=== PATIENT | female | born 1990 | race Caucasian/White ===

== ENCOUNTER 2024-10-24 12:41 | Emergency (ER) | payer MEDICAID ==
[~2024-10-24] VITALS: Ht 162.6 cm; Wt 80.0 kg
[2024-10-24 12:47] VITALS: BP 116/91; PULSE 83; RESP 18; TEMP 98.1; O2SAT 100
[2024-10-24] MEDS: KETOROLAC TROMETHAMINE 30 MG/ML VIAL IM ONE (14:20)
[2024-10-24] MEDS: LIDOCAINE 5% TRANSDERMAL PATCH TD ONE (14:20)
[2024-10-24] MEDS ORDERED: METH-812 PO (15:15)
[2024-10-24] MEDS ORDERED: IBUP-1492 PO (15:15)
== END 2024-10-24 15:41 | disposition home or self-care (01) ==
LOC: EMS 12:45
DX: S46.912A Strain of unspecified muscle, fascia and tendon at shoulder and upper arm level, left arm, initial encounter (principal); X58.XXXA Exposure to other specified factors, initial encounter; Y93.89 Activity, other specified; Y92.89 Other specified places as the place of occurrence of the external cause; Y99.8 Other external cause status
CPT/HCPCS: 99283; 73030; 96372; J1885